=== PATIENT | female | born 1990 | race Caucasian/White ===

== ENCOUNTER → 2018-09-24 | Outpatient (REF) | payer OTHER | LOC: M SFHCLERA 10:05 | DX: J02.9 Acute pharyngitis, unspecified (principal) ==

== ENCOUNTER → 2018-12-31 | Outpatient (REF) | payer OTHER ==
[2019-01-02 14:14] LABS: HPV HYBRID CAPTURE II Negative (Negative)
== END ==
LOC: M LAB REF 18:14
PROVIDERS: ATTEND Family Medicine
DX: Z11.3 Encounter for screening for infections with a predominantly sexual mode of transmission (principal); Z01.419 Encounter for gynecological examination (general) (routine) without abnormal findings; N87.0 Mild cervical dysplasia
CPT/HCPCS: 87624; G0123